=== PATIENT | female | born 1965 | race Caucasian/White ===

== ENCOUNTER 2017-06-02 08:21 | Emergency (ER) | payer MEDICAID | END 2017-06-02 09:35 | disposition home or self-care (01) | LOC: D.ER 08:21 | DX: R51 Headache (principal); F90.9 Attention-deficit hyperactivity disorder, unspecified type ==

== ENCOUNTER 2017-07-17 08:20 | Emergency (ER) | payer MEDICAID | END 2017-07-17 09:01 | disposition home or self-care (01) | LOC: D.ER 08:20 | DX: J32.0 Chronic maxillary sinusitis (principal); F90.9 Attention-deficit hyperactivity disorder, unspecified type ==

== ENCOUNTER 2017-12-06 12:56 | Emergency (ER) | payer MEDICAID | END 2017-12-06 15:37 | disposition home or self-care (01) | LOC: D.ER 12:56 | DX: L23.7 Allergic contact dermatitis due to plants, except food (principal); F90.9 Attention-deficit hyperactivity disorder, unspecified type ==

== ENCOUNTER 2020-12-05 18:29 | Emergency (ER) | payer BC ==
[~2020-12-05] VITALS: Ht 165.1 cm; Wt 60.5 kg
[2020-12-05 19:02] VITALS: BP 161/85; Ht 165.1 cm; Wt 60.5 kg
[2020-12-05] MEDS ORDERED: DICLOFENAC SODI50 MG PO (19:58)
== END 2020-12-05 20:47 | disposition home or self-care (01) ==
LOC: D.ER 18:29
DX: S93.402A Sprain of unspecified ligament of left ankle, initial encounter (principal); X58.XXXA Exposure to other specified factors, initial encounter